=== PATIENT | male | born 1955 | race Caucasian/White ===

== ENCOUNTER 2021-03-23 14:02 | Emergency (ER) | payer BC, SELFPAY ==
--- NOTE | ~2021-03-23 | XR_ITS ---
EXAMINATION: XR CHEST CLINICAL INFORMATION: Chest discomfort COMPARISON: None TECHNIQUE: 2 views of the chest were obtained. FINDINGS: No significant abnormality is noted involving the heart, lungs, mediastinum, bony thorax or soft tissues. XR/XR chest 2V IMPRESSION: Unremarkable chest examination.
[2021-03-23 14:29] VITALS: BP 166/91; PULSE 80; RESP 18; TEMP 36.6; O2SAT 98; BMI 21.8
--- NOTE | 2021-03-23 14:34 | ECG_ITS ---
Test Reason : chest tightness Blood Pressure : / mmHG Vent. Rate : 067 BPM Atrial Rate : 067 BPM P-R Int : 218 ms QRS Dur : 092 ms QT Int : 348 ms P-R-T Axes : 070 057 067 degrees QTc Int : 367 ms Sinus rhythm with 1st degree A-V block with Premature atrial complexes Otherwise normal ECG When compared with ECG of 26-MAR-2018 14:03, Premature atrial complexes are now Present Referred By: Generic ED Physician Electronically Signed By:Héctor Carter
[2021-03-23 14:55] LABS: MANUAL DIFF FLAG NO
[2021-03-23 14:56] LABS: Basophils Absolute Auto 0.1 X10*3/uL (0.0-0.2); Basophils Percent Auto 0.5 % (0-2); Eosinophils Absolute Auto 0.1 X10*3/uL (0.0-0.4); Eosinophils Percent Auto 0.5 % (0-4); Hematocrit 45.9 % (42.0-52.0); Imm Gran Abs Auto 0.08 X10*3/uL (0.00-0.03); Imm Gran Pct Auto 0.7 % (0.0-0.4); Lymphocytes Absolute Auto 1.3 X10*3/uL (1.2-4.9); Lymphocytes Percent Auto 12.2 % (20-40); Mean Corpuscular HGB Conc 34.9 g/dl (31.0-36.0); Mean Platelet Volume 9.8 fL (9.4-12.4); Monocytes Absolute Auto 0.7 X10*3/uL (0.1-1.2); Neutrophils Absolute Auto 8.8 x10*3/uL (2.0-8.3); Neutrophils Percent Auto 80.1 % (45-73); Platelet Count 234 X10*3/uL (160-400); Red Blood Count 5.16 X10*6/uL (4.60-5.80); Red Cell Distribution Width 11.8 % (11.0-16.0)
[2021-03-23 15:12] LABS: COVID-19 Test Negative (Negative); IDNOW Serial# 9DD0AD1C
[2021-03-23 15:15] LABS: Troponin-I High Sensitivity 3.6 ng/L (<3.5-35.0)
[2021-03-23 15:21] LABS: Anion Gap 13 (12-20); Blood Urea Nitrogen 22 mg/dL (9-16); Calcium 10.6 mg/dL (8.4-10.2); Carbon Dioxide 24 mmol/L (22-29); Chloride 105 mmol/L (96-108); Creatinine Clr Calc Pharmacy 95.4; Estimated Glomerular Filt Rate > 60; Glucose Random 110 mg/dL (60-115); Potassium 4.6 mmol/L (3.3-5.1); Sodium 137 mmol/L (135-145)
--- NOTE | 2021-03-23 16:00 | ED.GENADULT ---
HPI - General Adult General Chief complaint: General Medical Stated complaint: Chest tightness/l arm tingling Time Seen by Provider: 03/23/21 16:00 Source: patient Mode of arrival: ambulatory Limitations: no limitations History of Present Illness HPI narrative: 66-year-old male past medical history significant for hypercholesterolemia, hypertension presents to the emergency department with complaints of fatigue, anxiety, chest pain and left arm tingling. Patient tells me that right now he feels a lot better he tells me that his chest discomfort is intermittent, he has a hard time describing what the chest discomfort feels like. He tells me that likely he has been feeling anxious but he is not sure what exactly is causing it. He tells me that 3 days ago he stopped watching news because all of this is very overwhelming to him. He tells me that this chest pain discomfort has been going on for about a week, it comes and goes in at times of stress it gets worse. He tells me yesterday came to the hospital, got nervous sat in the parking lot for a while and decided not to come in however he decided to come today. Since this started he has been walking 2 miles a day without pain. He denies shortness of breath, fevers, chills, nausea, vomiting, abdominal pain, headache, weakness, dizziness. He has no cardiac history Onset (ago): week(s) (1) Location: chest Radiation: non-radiation Severity: mild Pain Consistency: intermittent Exacerbating factors: other (stress) Associated symptoms: chest pain Treatments prior to arrival: none Related Data Previous Rx's Medication Instructions Recorded lorazepam 0.5 mg tablet (Ativan) 0.5 mg PO ONCE PRN #10 tab 03/23/21 Allergies Allergy/AdvReac Type Severity Reaction Status Date / Time No Known Allergies Allergy Unverified 11/19/19 17:25 [No Known Allergies*] Review of Systems Review of Systems: Constitutional : No Weight loss, No Fever, No Chills, No Fatigue, No Malaise ENT/Mouth : No sore throat, No Rhinorrhea Eyes: No Eye Pain, No Swelling, No Redness Cardiovascular : + Chest Pain, No SOB, No Dyspnea on Exertion, No Orthopnea, No Edema, No Palpitations Respiratory : No Cough, No Sputum, No Wheezing Gastrointestinal : No Nausea, No Vomiting, No Diarrhea, No Constipation, No abdominal Pain, No Hematochezia, No Melena Genitourinary : No Dysuria, No Urinary Frequency, No Hematuria, Musculoskeletal : No joint pain, No Myalgias, No Joint Swelling Skin : No Skin Lesions, No rash Neuro : No Weakness, No Numbness, No Dizziness, No Headache, +paresthesias to l. arm Psych : + Anxiety/Panic, No Depression, All other systems reviewed and are negative Yes all other systems are reviewed and are negative [facility] Past Medical History Attestation statement: The following information was validated with the patient. Source: old records reviewed and nursing notes reviewed Medical History (Updated 03/23/21 @ 16:35 by SILVERIO Davalos) High cholesterol HTN (hypertension) Social History Social History Advance Directives: No Advance Directives Information Provided: Yes Physical Exam Vital Signs: Vital Signs: Last Vital Signs Temp 98.4 F 03/23/21 16:04 Pulse 82 03/23/21 16:04 Resp 18 03/23/21 16:04 BP 133/79 03/23/21 16:04 Pulse Ox 98 03/23/21 16:04 BMI result Body Mass Index 21.8 VSS Appearance: Alert.? Oriented X3.? No acute distress.? Head: Normocephalic, atraumatic, no step-offs or deformities Eyes: Pupils equal, round and reactive to light.? ENT: Pharynx normal.? Neck: Normal inspection.? Neck supple.? CVS: Normal heart rate and rhythm.? Pulses normal.? Respiratory: No respiratory distress.? Breath sounds normal.? Abdomen: Soft and nontender.? Skin: Skin warm and dry.? Normal skin color.? Normal skin turgor.? Extremities: No lower extremity edema.? No calf ttp, negative sugar b/l. 5/5 strength to bilateral upper and lower extremities Back: No midline tenderness, no C-spine tenderness, full range of motion, no CVA tenderness bilaterally Neuro: Oriented X 3.? No motor deficit.? No sensory deficit. Course Reevaluation(s) Reevaluation #1: Patient is noted to have a slight leukocytosis, troponin 3.6, negative. No acute electrolyte abnormalities, no anemia. COVID negative. I will give patient 0.5 mg of Ativan now for anxiety. This is unlikely ACS. Time: 16:27 Reevaluation #2: Patient refusing ativan. He tells me that his chest pain has resolved. He denies shortness of breath, calf pain, recent travel or immobilization, unlikely PE. Troponin negative EKG nonischemic very low suspicion for ACS. This is likely chest pain secondary to anxiety. I have sent Ativan to his pharmacy. I have advised him to return to the emergency department with new or worsening symptoms such as chest pain, shortness of breath, headache, dizziness, vision changes, weakness. Comfortable discharge home with PCP follow-up. Time: 16:46 Medical Decision Making MDM Narrative Medical decision making narrative: 1608 66 yo m pmhx hypercholesterolemia, HTN presents to ED w/ complaints of fatigue, intermittent chest discomfort, and anxiety X1 week. He tells me that at this time he is not having any chest discomfort. He tells me it happens intermittently. He has recently stopped watching the news, because everything going on in the world right now is stressing him out. Physical examination benign. Vital signs stable. Plan at this time is to do a COVID, chest x-ray, basic labs, troponin. Medical Records Medical records reviewed: Yes I reviewed the patient's medical records. Lab Data Lab results reviewed: Yes I reviewed the patient's lab results. Result diagrams: 03/23/21 14:46 03/23/21 14:46 Labs: Lab Results 03/23/21 03/23/21 03/23/21 Range/Units 14:39 14:46 14:46 WBC 11.0 H (4.8-10.8) X10*3/uL RBC 5.16 (4.60-5.80) X10*6/uL Hgb 16.0 (14.0-18.0) g/dl Hct 45.9 (42.0-52.0) % MCV 89.0 (80.0-98.0) fL MCH 31.0 (27.0-33.0) pg MCHC 34.9 (31.0-36.0) g/dl RDW 11.8 (11.0-16.0) % Plt Count 234 (160-400) X10*3/uL MPV 9.8 (9.4-12.4) fL Immature Gran % (Auto) 0.7 H (0.0-0.4) % Neut % (Auto) 80.1 H (45-73) % Lymph % (Auto) 12.2 L (20-40) % [place] % (Auto) 6.0 (2-11) % Eos % (Auto) 0.5 (0-4) % Baso % (Auto) 0.5 (0-2) % Lymph # (Auto) 1.3 (1.2-4.9) X10*3/uL [place] # (Auto) 0.7 (0.1-1.2) X10*3/uL Eos # (Auto) 0.1 (0.0-0.4) X10*3/uL Baso # (Auto) 0.1 (0.0-0.2) X10*3/uL Abs Immat Gran (auto) 0.08 H (0.00-0.03) X10*3/uL Absolute Neuts (auto) 8.8 H (2.0-8.3) x10*3/uL Absolute Nucleated RBC 0.000 (0.0-0.012) X10*3/uL Nucleated RBC % (auto) 0.0 (0.0-0.2) /100WBC Sodium 137 (135-145) mmol/L Potassium 4.6 (3.3-5.1) mmol/L Chloride 105 (96-108) mmol/L Carbon Dioxide 24 (22-29) mmol/L Anion Gap 13 (12-20) BUN 22 H (9-16) mg/dL Creatinine 0.83 (0.5-1.4) mg/dL Estim Creat Clear Calc 95.4 Estimated GFR > 60 Random Glucose 110 (60-115) mg/dL Calcium 10.6 H (8.4-10.2) mg/dL Troponin I High Sens (<3.5-35.0) ng/L COVID-19 (DASHA) Negative (Negative) COVID-19 Clin Com See Note 03/23/21 Range/Units 14:46 WBC (4.8-10.8) X10*3/uL RBC (4.60-5.80) X10*6/uL Hgb (14.0-18.0) g/dl Hct (42.0-52.0) % MCV (80.0-98.0) fL MCH (27.0-33.0) pg MCHC (31.0-36.0) g/dl RDW (11.0-16.0) % Plt Count (160-400) X10*3/uL MPV (9.4-12.4) fL Immature Gran % (Auto) (0.0-0.4) % Neut % (Auto) (45-73) % Lymph % (Auto) (20-40) % [place] % (Auto) (2-11) % Eos % (Auto) (0-4) % Baso % (Auto) (0-2) % Lymph # (Auto) (1.2-4.9) X10*3/uL [place] # (Auto) (0.1-1.2) X10*3/uL Eos # (Auto) (0.0-0.4) X10*3/uL Baso # (Auto) (0.0-0.2) X10*3/uL Abs Immat Gran (auto) (0.00-0.03) X10*3/uL Absolute Neuts (auto) (2.0-8.3) x10*3/uL Absolute Nucleated RBC (0.0-0.012) X10*3/uL Nucleated RBC % (auto) (0.0-0.2) /100WBC Sodium (135-145) mmol/L Potassium (3.3-5.1) mmol/L Chloride (96-108) mmol/L Carbon Dioxide (22-29) mmol/L Anion Gap (12-20) BUN (9-16) mg/dL Creatinine (0.5-1.4) mg/dL Estim Creat Clear Calc Estimated GFR Random Glucose (60-115) mg/dL Calcium (8.4-10.2) mg/dL Troponin I High Sens 3.6 (<3.5-35.0) ng/L COVID-19 (DASHA) (Negative) COVID-19 Clin Com Imaging Data Chest x-ray: Attestation: I personally reviewed and interpreted this imaging study as follows: Radiologist's impression: FINDINGS: No significant abnormality is noted involving the heart, lungs, mediastinum, bony thorax or soft tissues. XR/XR chest 2V IMPRESSION: Unremarkable chest examination. ECG Data Attestation: I personally reviewed and interpreted this ECG as follows: Prior ECG tracings: not available for review Interpretation: Ventricular rate of 67, [place] normal, QRS normal, QT/QTC normal. EKG shows sinus rhythm with first-degree AV block. No ST elevations or inversions that are concerning for ischemia. No previous EKGs to compare with Critical Care Time Critical Care Time Critical Care Time: No Discharge Plan Discharge Clinical Impression: Chest pain not due to acute coronary syndrome, Anxiety Patient Disposition: Home, Self-Care Instructions: Chest Pain (ED), Anxiety (ED), Panic Attack (ED) Additional Instructions: Take your medications as prescribed. If you were prescribed antibiotics today, it is important that you take your medication to their entirety, do not skip any doses, do not finish them early. Follow-up with your primary care provider this week. Such as chest pain, shortness of breath, nausea, vomiting, headache, weakness. Return to the emergency department with new or worsening symptoms. In case of emergency call 911 Prescriptions: New lorazepam [Ativan] 0.5 mg tablet 0.5 mg PO ONCE PRN (Reason: anxiety) Qty: 10 RF: 0 Referrals: Pooja Travis MD [Primary Care Provider] - 2 days Stand Alone Forms: Work/School Release Interventions: ED Discharge Assessment Last Done: 03/23/21 17:01 Discharge Date/Time: 03/23/21 17:02
[2021-03-23 16:04] VITALS: BP 133/79; PULSE 82; RESP 18; TEMP 36.9; O2SAT 98
== END 2021-03-23 17:02 | disposition home or self-care (01) ==
PROVIDERS: Emergency Provider Emergency Medicine Emergency Medical Services; PCP Family Medicine
DX: R07.89 Other chest pain (principal); F41.9 Anxiety disorder, unspecified; Z20.822 Contact with and (suspected) exposure to COVID-19; I10 Essential (primary) hypertension; E78.5 Hyperlipidemia, unspecified
CPT/HCPCS: 36415; 71046; 80048; 84484; 85025; 87635; 93005; 99284

== ENCOUNTER 2021-04-01 02:05 | Emergency (ER) | payer BC, SELFPAY ==
--- NOTE | ~2021-04-01 | CT_ITS ---
EXAMINATION: CT CHEST WITHOUT CONTRAST CLINICAL INFORMATION: Chest tightness COMPARISON: Chest radiograph from 03/23/2021 TECHNIQUE: Multidetector volumetric CT imaging of the chest was done. Axial MIP volume rendering provided. Sagittal and coronal reformatted images were obtained. This CT examination was performed using dose optimization techniques as appropriate, variously including the following: *Automated exposure control *Adjustment of mA and/or kV according to patient size (this includes techniques or standardized protocols for targeted exams where dose is matched to indication/reason for exam; i.e. extremities or head) *Use of iterative reconstruction technique DLP: 289 mGy-cm FINDINGS: LUNGS: The lungs are clear with no evidence of inflammation or nodules. The central airways are patent. MEDIASTINUM: Normal heart size. No pericardial effusion. No mediastinal lymphadenopathy. The visualized portion of the thyroid gland is unremarkable. PLEURA: There is no pleural effusion. No pleural mass or thickening. No pneumothorax. AXILLA: No lymphadenopathy. UPPER ABDOMEN: Multiple hypoattenuating lesions are seen within the liver, most of which are too small to characterize. The largest of these measure simple fluid attenuation, suggestive of simple cysts. There is partial visualization of a simple right renal cyst. No follow-up imaging recommended. OSSEOUS STRUCTURES: No acute or suspicious osseous abnormality. Mild degenerative changes of the spine. CT/CT chest wo con IMPRESSION: No acute findings within the chest. The lungs are clear. Fleischner guidelines were followed.
[2021-04-01 02:09] VITALS: BP 140/78; PULSE 60; RESP 20; TEMP 36.3; O2SAT 100; BMI 21.8
--- NOTE | 2021-04-01 03:22 | ED_ITS ---
HPI - General Adult General Chief complaint: General Medical Stated complaint: high BP, increased heart rate Time Seen by Provider: 04/01/21 02:31 Source: patient and old records reviewed Mode of arrival: ambulatory Limitations: no limitations History of Present Illness MD complaint: palpitations, elevated blood pressures Onset (ago): day(s) (on and off since the ) Location: chest Radiation: non-radiation Severity: moderate Quality: dull Relieving factors: none Exacerbating factors: none Associated symptoms: other (BP 140 to 170s compliant with his amlodipine just seen on 03/23 negative workup in ED then was able to complete 2 mile walk saturday and felt fine but notes his HR goes up and BP goes up at night and it keeps him up) Treatments prior to arrival: none Related Data Previous Rx's Medication Instructions Recorded lorazepam 0.5 mg tablet (Ativan) 0.5 mg PO ONCE PRN #10 tab 03/23/21 lisinopril 2.5 mg tablet 2.5 mg PO DAILY #30 tab 04/01/21 Allergies Allergy/AdvReac Type Severity Reaction Status Date / Time No Known Allergies Allergy Verified 04/01/21 02:18 [No Known Allergies*] Review of Systems Verdana 4l Review of Systems: Verdana 4d Verdana 4d Constitutional : No Weight loss, No Fever, No Chills ENT/Mouth : No sore throat, No Rhinorrhea Eyes: No Eye Pain, No Swelling Cardiovascular : no Chest Pain, no SOB, no Dyspnea on Exertion, No Orthopnea, No Edema, pos Palpitations RespiratoryRespiratory : No Cough, No Sputum Gastrointestinal :no Nausea, No Vomiting, No Diarrhea, No abdominal Pain, No Hematochezia, No Melena Genitourinary : No Dysuria, No Urinary Frequency Musculoskeletal : No joint pain, No Myalgias, No Joint Swelling Skin : No Skin Lesions, No rash Neuro : No Weakness, No Numbness, No Dizziness, No Headache Psych : No Anxiety/Panic, No Depression Heme/Lymph: No Bruising, No Lymphadenopathy Endocrine : No Polyuria, No Polydipsia All other systems reviewed and are negative [facility] Past Medical History Attestation statement: The following information was validated with the patient. Medical History High cholesterol HTN (hypertension) Social History Social History (Updated 04/01/21 @ 03:42 by Karen Henley DO) Patient Tobacco Use Status: Never used Tobacco Advance Directives: No Advance Directives Information Provided: Yes Physical Exam Verdana 4l Vital Signs: Verdana 4d Verdana 4d Vital Signs: Verdana 4d Verdana 4Bd Last Vital Signs Verdana 4d Talent Buyer New 4d Talent Buyer New 4d Temp 97.3 F 04/01/21 02:09 Talent Buyer New 4d Pulse 66 04/01/21 03:53 Talent Buyer New 4d Resp 15 04/01/21 03:53 BP 150/76 H 04/01/21 03:53 Pulse Ox 97 04/01/21 03:53 BMI result Body Mass Index 21.8 Appearance: Alert. Oriented X3. No acute distress. Anxious appearing Eyes: Pupils equal, round and reactive to light. ENT: Pharynx normal. Neck: Normal inspection. Neck supple. CVS: Normal heart rate and rhythm. Pulses normal. Respiratory: No respiratory distress. Breath sounds normal. Abdomen: Soft and nontender. Skin: Skin warm and dry. Normal skin color. Normal skin turgor. Extremities: No lower extremity edema. No calf ttp Neuro: Oriented X 3. No motor deficit. No sensory deficit. Course Course Course Narrative: negative workup stable for DC will start on low dose lisinopril 2.5mg given BP and will instruct him to follow up with PCP Medical Decision Making MDM Narrative Medical decision making narrative: 66 yo male with hx of HTN, HLD here with c/o palpitations at night waking him from sleep as well as BP increasing 140 to 170s despite compliance with his amlodipine 10mg he denies any OTC medications and doesn't feel anxious. He notes he was just worked up for chest pain in our ED and was able to walk 2 miles after his DC and felt fine. Thinks his BP is consistently high and needs another BP medication. At this time will obtain troponin x 1, EKG, TSH, CT scan for mass. Dispo per results and findings. Lab Data Result diagrams: 04/01/21 03:53 04/01/21 03:53 Labs: Lab Results 04/01/21 04/01/21 04/01/21 Range/Units 03:53 03:53 03:53 WBC 9.4 (4.8-10.8) X10*3/uL RBC 4.98 (4.60-5.80) X10*6/uL Hgb 15.2 (14.0-18.0) g/dl Hct 44.4 (42.0-52.0) % MCV 89.2 (80.0-98.0) fL MCH 30.5 (27.0-33.0) pg MCHC 34.2 (31.0-36.0) g/dl RDW 11.9 (11.0-16.0) % Plt Count 230 (160-400) X10*3/uL MPV 9.6 (9.4-12.4) fL Immature Gran % (Auto) 0.6 H (0.0-0.4) % Neut % (Auto) 69.0 (45-73) % Lymph % (Auto) 19.6 L (20-40) % [place] % (Auto) 9.1 (2-11) % Eos % (Auto) 1.2 (0-4) % Baso % (Auto) 0.5 (0-2) % Lymph # (Auto) 1.8 (1.2-4.9) X10*3/uL [place] # (Auto) 0.9 (0.1-1.2) X10*3/uL Eos # (Auto) 0.1 (0.0-0.4) X10*3/uL Baso # (Auto) 0.1 (0.0-0.2) X10*3/uL Abs Immat Gran (auto) 0.06 H (0.00-0.03) X10*3/uL Absolute Neuts (auto) 6.5 (2.0-8.3) x10*3/uL Absolute Nucleated RBC 0.000 (0.0-0.012) X10*3/uL Nucleated RBC % (auto) 0.0 (0.0-0.2) /100WBC Sodium 138 (135-145) mmol/L Potassium 4.8 (3.3-5.1) mmol/L Chloride 104 (96-108) mmol/L Carbon Dioxide 24 (22-29) mmol/L Anion Gap 15 (12-20) BUN 17 H (9-16) mg/dL Creatinine 0.84 (0.5-1.4) mg/dL Estim Creat Clear Calc 94.3 Estimated GFR > 60 Random Glucose 104 (60-115) mg/dL Calcium 10.4 H (8.4-10.2) mg/dL Magnesium 2.4 (1.6-2.6) mg/dL Troponin I High Sens < 3.5 (<3.5-35.0) ng/L TSH 1.72 (0.32-4.0) uIU/mL ECG Data Attestation: I personally reviewed and interpreted this ECG as follows: Interpretation: Rate: 61 Rhythm: NSR with 1st degree AVB [place]: normal Normal P waves. Normal GREGORY. Normal QRS complex. ST T wave : normal no JONATHAN qTC: normal prior studies: no acute ischemia The study has been interpreted contemporaneously by me. . Discharge Plan Discharge Clinical Impression: HTN (hypertension), Heart palpitations Patient Disposition: Home, Self-Care Instructions: Heart Palpitations (ED), Hypertension (ED) Additional Instructions: return to ED for any worsening symptoms or concerns EKG, chest CT scan, heart markers and thyroid are all normal Prescriptions: New lisinopril 2.5 mg tablet 2.5 mg PO DAILY Qty: 30 0RF No Action lorazepam [Ativan] 0.5 mg tablet 0.5 mg PO ONCE PRN (Reason: anxiety) Qty: 10 0RF Rx Instructions: Patient can partially fill prescription upon request Referrals: Physician,Unknown J [Primary Care Provider] - 3 days (recheck primary care - follow up kidney function and potassium in 5 days)
--- NOTE | 2021-04-01 03:39 | ECG_ITS ---
Test Reason : HYPERTENSION Blood Pressure : / mmHG Vent. Rate : 061 BPM Atrial Rate : 061 BPM P-R Int : 226 ms QRS Dur : 096 ms QT Int : 396 ms P-R-T Axes : 063 039 056 degrees QTc Int : 398 ms Sinus rhythm with sinus arrhythmia with 1st degree A-V block Otherwise normal ECG When compared with ECG of 23-MAR-2021 14:32, Premature atrial complexes are no longer Present Referred By: Karen Henley Electronically Signed By:EDMUNDO CHARLES MD
[2021-04-01 03:53] VITALS: BP 150/76; PULSE 66; RESP 15; O2SAT 97
[2021-04-01 03:58] LABS: MANUAL DIFF FLAG NO
[2021-04-01 04:00] LABS: Basophils Absolute Auto 0.1 X10*3/uL (0.0-0.2); Basophils Percent Auto 0.5 % (0-2); Eosinophils Absolute Auto 0.1 X10*3/uL (0.0-0.4); Eosinophils Percent Auto 1.2 % (0-4); Hematocrit 44.4 % (42.0-52.0); Hemoglobin 15.2 g/dl (14.0-18.0); Imm Gran Abs Auto 0.06 X10*3/uL (0.00-0.03); Imm Gran Pct Auto 0.6 % (0.0-0.4); Lymphocytes Absolute Auto 1.8 X10*3/uL (1.2-4.9); Lymphocytes Percent Auto 19.6 % (20-40); Mean Corpuscular HGB Conc 34.2 g/dl (31.0-36.0); Mean Corpuscular Hemoglobin 30.5 pg (27.0-33.0); Mean Corpuscular Volume 89.2 fL (80.0-98.0); Mean Platelet Volume 9.6 fL (9.4-12.4); Monocytes Absolute Auto 0.9 X10*3/uL (0.1-1.2); Monocytes Percent Auto 9.1 % (2-11); Neutrophils Absolute Auto 6.5 x10*3/uL (2.0-8.3); Platelet Count 230 X10*3/uL (160-400); Red Blood Count 4.98 X10*6/uL (4.60-5.80); Red Cell Distribution Width 11.9 % (11.0-16.0); White Blood Count 9.4 X10*3/uL (4.8-10.8)
[2021-04-01 04:14] LABS: Anion Gap 15 (12-20); Blood Urea Nitrogen 17 mg/dL (9-16); Calcium 10.4 mg/dL (8.4-10.2); Carbon Dioxide 24 mmol/L (22-29); Chloride 104 mmol/L (96-108); Creatinine Clr Calc Pharmacy 94.3; Estimated Glomerular Filt Rate > 60; Glucose Random 104 mg/dL (60-115); Magnesium 2.4 mg/dL (1.6-2.6); Potassium 4.8 mmol/L (3.3-5.1); Sodium 138 mmol/L (135-145)
[2021-04-01 04:18] LABS: Troponin-I High Sensitivity < 3.5 ng/L (<3.5-35.0)
[2021-04-01 04:35] LABS: TSH reflex Free T4 1.72 uIU/mL (0.32-4.0)
[2021-04-01 05:04] VITALS: BP 149/80; PULSE 70; RESP 13; O2SAT 97
== END 2021-04-01 05:19 | disposition home or self-care (01) ==
PROVIDERS: Emergency Provider Emergency Medicine
DX: I10 Essential (primary) hypertension (principal); R00.2 Palpitations; E78.5 Hyperlipidemia, unspecified; Z79.899 Other long term (current) drug therapy
CPT/HCPCS: 36415; 71250; 80048; 83735; 84443; 84484; 85025; 93005; 99284

== ENCOUNTER 2023-04-09 05:10 | Emergency (ER) | payer MEDICARE, OTHER, SELFPAY ==
--- NOTE | 2023-04-09 | ECG_ITS ---
Test Reason : CHEST DISCOMFORT Blood Pressure : / mmHG Vent. Rate : 067 BPM Atrial Rate : 067 BPM P-R Int : 232 ms QRS Dur : 096 ms QT Int : 384 ms P-R-T Axes : 076 022 039 degrees QTc Int : 405 ms Sinus rhythm with sinus arrhythmia with 1st degree A-V block Otherwise normal ECG When compared with ECG of 01-APR-2021 03:50, No significant change was found Referred By: Generic ED Physician Electronically Signed By:JAVIER RODRIGUEZ
--- NOTE | 2023-04-09 | ECG_ITS ---
Test Reason : REPEAT/LT ARM PAIN Blood Pressure : / mmHG Vent. Rate : 062 BPM Atrial Rate : 062 BPM P-R Int : 222 ms QRS Dur : 096 ms QT Int : 388 ms P-R-T Axes : 050 028 045 degrees QTc Int : 393 ms Sinus rhythm with 1st degree A-V block Otherwise normal ECG When compared with ECG of 09-APR-2023 05:17, No significant change was found Referred By: Generic ED Physician Electronically Signed By:JAVIER RODRIGUEZ
--- NOTE | ~2023-04-09 | CT_ITS ---
EXAMINATION: CT HEAD WITHOUT CONTRAST CLINICAL INFORMATION: Left upper extremity pain COMPARISON: None available. TECHNIQUE: Contiguous axial imaging was performed from the skull base to vertex without intravenous administration of contrast. This CT examination was performed using dose optimization techniques as appropriate, variously including the following: *Automated exposure control *Adjustment of mA and/or kV according to patient size (this includes techniques or standardized protocols for targeted exams where dose is matched to indication/reason for exam; i.e. extremities or head) *Use of iterative reconstruction technique DLP: 733 mGy-cm FINDINGS: There is no acute intra-axial, extra-axial bleed, masses or midline shift. There is no acute infarction evolution. There is no edema. The lateral ventricles are symmetrical in size and configuration without enlargement. Bone windows reveal no calvarial abnormality. There is no scalp soft tissue abnormality. There is mild mucoperiosteal thickening right frontal sinus. Rest the visualized paranasal sinuses are well-aerated and clear. The mastoid sinuses are clear. CT/CT head/brain wo IV con IMPRESSION: No acute intracranial process seen.
--- NOTE | ~2023-04-09 | US_ITS ---
EXAMINATION: US VENOUS WITH DOPPLER UPPER EXTREMITY, LEFT CLINICAL INFORMATION: Left arm pain COMPARISON: None available. TECHNIQUE: Ultrasound of the upper extremity is performed using compression sonography and color and pulse Doppler flow with assessment of augmentation of flow. There is also imaging and Doppler assessment of the jugular and subclavian veins. Spectral analysis with color-flow imaging is performed. FINDINGS: Respiratory variation and normal compression are noted throughout the upper extremity including the axillary, brachial, basilic, cephalic and radial and ulnar veins. There is normal flow in the internal jugular and subclavian veins. There is no visible deep or superficial thrombophlebitis. The right subclavian vein demonstrates normal flow. US/US venous duplex UE LT IMPRESSION: No DVT demonstrated in the left upper extremity.
[2023-04-09 05:30] LABS: Basophils Percent Auto 0.5 % (0-2); Eosinophils Absolute Auto 0.1 X10*3/uL (0.0-0.4); Eosinophils Percent Auto 1.6 % (0-4); Hematocrit 46.9 % (42.0-52.0); Hemoglobin 16.2 g/dl (14.0-18.0); Imm Gran Abs Auto 0.04 X10*3/uL (0.00-0.03); Imm Gran Pct Auto 0.5 % (0.0-0.4); Lymphocytes Percent Auto 24.5 % (20-40); MANUAL DIFF FLAG NO; Mean Corpuscular HGB Conc 34.5 g/dl (31.0-36.0); Mean Corpuscular Volume 86.9 fL (80.0-98.0); Mean Platelet Volume 9.4 fL (9.4-12.4); Monocytes Absolute Auto 0.5 X10*3/uL (0.1-1.2); Monocytes Percent Auto 6.1 % (2-11); Neutrophils Absolute Auto 5.5 x10*3/uL (2.0-8.3); Neutrophils Percent Auto 66.8 % (45-73); Platelet Count 202 X10*3/uL (160-400); Red Cell Distribution Width 12.2 % (11.0-16.0); White Blood Count 8.2 X10*3/uL (4.8-10.8)
[2023-04-09 05:44] LABS: Alanine Aminotransferase 29 U/L (0-40); Albumin Level 4.6 g/dL (3.5-5.0); Alkaline Phosphatase 78 U/L (39-117); Anion Gap 13 (12-20); Aspartate Amino Transferase 22 U/L (5-37); Bilirubin Direct 0.3 mg/dL (0.0-0.5); Bilirubin Total 0.7 mg/dL (0.0-1.0); Blood Urea Nitrogen 21 mg/dL (9-16); Carbon Dioxide 25 mmol/L (22-29); Chloride 105 mmol/L (96-108); Estimated Glomerular Filt Rate > 60; Glucose Random 115 mg/dL (60-115); Lipase 26 U/L (8-78); Potassium 3.8 mmol/L (3.3-5.1); Sodium 139 mmol/L (135-145); Total Protein 7.5 g/dL (6.5-8.0)
[2023-04-09 05:46] VITALS: BMI 24.0
[2023-04-09 05:51] VITALS: BP 151/73; PULSE 66; RESP 17; TEMP 36.6; O2SAT 98
--- NOTE | 2023-04-09 05:51 | MHC.EDTECH ---
Patient came in from triage,repeat EKG taken per order and signed by provider,patient placed in hospital attire, and placed on the monitoring analyst
[2023-04-09 05:52] LABS: Troponin-I High Sensitivity < 2.7 ng/L (<3.5-35.0)
[2023-04-09 06:31] VITALS: BP 133/75; PULSE 62; RESP 18; TEMP 36.6; O2SAT 98
--- NOTE | 2023-04-09 06:41 | MHC.EDTECH ---
Urine sample collected and sent to lab.
[2023-04-09 06:48] LABS: Appearance Urine Clear; Color Urine Yellow; Glucose Urine UA Negative (Negative); Leukocyte Esterase Urine Negative (Negative); Nitrite Urine Negative (Negative); Urine Blood Negative (Negative); Urine Ketones Trace mg/dL (Negative); Urine Protein Negative (Neg-Trace)
--- NOTE | 2023-04-09 07:34 | ED_ITS ---
HPI - General Adult General Chief complaint: Weakness Stated complaint: L Arm Sore/Not feeling good Time Seen by Provider: 04/09/23 07:16 Source: patient and family ( spouse) Mode of arrival: ambulatory Limitations: no limitations History of Present Illness HPI narrative: a 68-year-old male came in for evaluation of multiple symptoms that started 4- 5 weeks ago. Patient is sickness started after was diagnosed with COVID end of February, patient tested negative for COVID on March 08 still having some symptoms like loss of taste and did have left arm soreness that has been constant since March 08 felt like muscle soreness after exercising, patient been having episodes of dizziness and lightheadedness ever since that is intermittent and self resolved, symptoms was fluctuating for the past 5 weeks, patient stated that he walks every day 2-3 miles for exercising, do not drink, do not use any drugs. This morning patient felt 4 extremities weakness, and his teeth with chattering like his shivering but declined any slurred speech or focal weakness or numbness. No CP, no SOB, no abdominal pain, no nausea, no vomiting, normal appetite and p.o. intake. Patient stated that he is relatively healthy takes medication for high blood pressure, and he is prediabetic that is controlled by dieting and exercising. Related Data Previous Rx's Medication Instructions Recorded lorazepam 0.5 mg tablet (Ativan) 0.5 mg PO ONCE PRN anxiety #10 tabs 03/23/21 lisinopril 2.5 mg tablet 2.5 mg PO DAILY #30 tabs 04/01/21 Allergies Allergy/AdvReac Type Severity Reaction Status Date / Time No Known Allergies Allergy Verified 04/01/21 02:18 [No Known Allergies*] Review of Systems 2 Review of Systems: all other systems are reviewed and are negative Constitutional: Reports as per HPI and Reports no additional constitutional complaints Eyes: Reports as per HPI and Reports no additional eye complaints Reports system reviewed and no additional complaints, except as documented Cardiovascular: Reports as per HPI and Reports no additional cardiovascular complaints Respiratory: Reports as per HPI and Reports no additional respiratory complaints Gastrointestinal: Reports as per HPI and Reports no additional gastrointestinal complaints Genitourinary: Reports no additional female genitourinary complaints Musculoskeletal: Reports no additional musculoskeletal complaints Skin/Breast: Reports system reviewed and no additional complaints, except as docu Psychiatric: Reports no additional psychiatric complaints Endocrine: Reports no additional endocrine complaints Hematologic/Lymphatic: Reports no additional hematologic/lymphatic complaints Allergic/Immunologic: Reports no additional allergic/immunologic complaints Reports system reviewed and no additional complaints, except as documented and Reports Abnormal speech present [facility] Past Medical History Medical History High cholesterol HTN (hypertension) Social History Social History Patient Tobacco Use Status: Never used Tobacco Advance Directives: No Advance Directives Information Provided: Yes Physical Exam ED Vital Signs: Vital Signs - 24 hr 04/09/23 05:51 04/09/23 06:31 04/09/23 09:58 Temperature 97.9 F 97.8 F 97.9 F Pulse Rate 66 62 62 Respiratory Rate 17 18 16 Blood Pressure 151/73 H 133/75 118/75 Pulse Oximetry 98 98 97 Oxygen Delivery Method Room Air Room Air Room Air BMI result Body Mass Index 24.0 Vital signs have been reviewed and appear to be correct. Blood pressure elevated. Heart rate normal. Respiratory rate normal. Temperature normal. Oxygen saturation normal. Appearance: Alert. Oriented X3. No acute distress. Head: Normal external exam. Normocephalic. Atraumatic. No [place] signs noted. No raccoon eyes noted Eyes: PERRLA. EOMI. Conjunctiva and sclera normal. Eyelids normal. ENT: TM's Normal. Pharynx normal. Uvula midline. Moist mucous membranes. No trismus noted. No drooling noted. No muffled voice noted. Neck: Normal inspection. Neck supple. FROM. No adenopathy. Thyroid Normal. No meningeal signs. No neck mass noted. CVS: Normal heart rate and rhythm. Heart sound normal. No murmurs noted. Pulses normal throughout. Respiratory: No respiratory distress. Painless inspiration. Breath sounds normal. No wheezes/rales/rhonchi noted. Chest nontender. No accessory muscle usage noted or decreased air movement noted. Abdomen: Soft and nontender. Bowel sounds normal in all 4 quadrants. No distention noted. No organomegaly noted. No visible injury noted. Back: No CVA tenderness. Full range of motion noted. Skin: Skin warm and dry. Normal skin color. Normal skin turgor. No rashes/lesions/lacerations noted. Extremities: No lower extremity edema. Extremities exhibit normal range of motion. Extremities nontender. Neuro: Oriented X 3. Cranial nerve exam: II-XII are grossly intact No motor deficit. No sensory deficit. Reflexes normal. NIH Stroke Scale Time: 07:40 Level of Consciousness: Alert Level of Consciousness Questions: Answers both questions correctly Level of Consciousness Commands: Performs both tasks correctly Best Gaze: Normal Visual: No visual loss Facial Palsy: Normal Motor Arm (Right): No drift Motor Arm (Left): No drift Motor Leg (Right): No drift Motor Leg (Left): No drift Limb Ataxia: Absent Sensory: Normal Best Language: No aphasia Dysarthia: Normal Extinction and Inattention: No abnormality Score: 0 Course Reevaluation(s) Reevaluation #1: 68-year-old male came in for evaluation of history of a month of nonspecific weakness and pain in the left upper extremities but also complaining of generalized weakness symptoms started a month ago after was infected with COVID, patient has grossly intact neuro exam was unremarkable head CT, unremarkable labs except slight elevation of CPK, no DVT in the left upper extremities by ultrasound, no evidence of stroke on the head CT. Patient appear anxious during the interview. Patient's symptoms felt to be post COVID Symptoms. Time: 10:15 Medical Decision Making Differential Diagnosis Differential Diagnoses: The differential diagnosis associated with the presentation includes ( intracranial bleed, CVA, electrolyte abnormality, rhabdomyolysis, severe anemia,UTI, post COVID symptoms left upper extremity DVT) Admission/Observation Consideration of admission/observation: Escalation of care including admission/observation considered Lab Data MDM Lab Attestation statement: I reviewed the patient's lab results. 04/09/23 05:26 04/09/23 05:26 Labs: Lab Results 04/09/23 04/09/23 Range/Units 05:26 06:41 WBC 8.2 (4.8-10.8) X10*3/uL RBC 5.40 (4.60-5.80) X10*6/uL Hgb 16.2 (14.0-18.0) g/dl Hct 46.9 (42.0-52.0) % MCV 86.9 (80.0-98.0) fL MCH 30.0 (27.0-33.0) pg MCHC 34.5 (31.0-36.0) g/dl RDW 12.2 (11.0-16.0) % Plt Count 202 (160-400) X10*3/uL MPV 9.4 (9.4-12.4) fL Immature Gran % (Auto) 0.5 H (0.0-0.4) % Neut % (Auto) 66.8 (45-73) % Lymph % (Auto) 24.5 (20-40) % [place] % (Auto) 6.1 (2-11) % Eos % (Auto) 1.6 (0-4) % Baso % (Auto) 0.5 (0-2) % Lymph # (Auto) 2.0 (1.2-4.9) X10*3/uL [place] # (Auto) 0.5 (0.1-1.2) X10*3/uL Eos # (Auto) 0.1 (0.0-0.4) X10*3/uL Baso # (Auto) 0.0 (0.0-0.2) X10*3/uL Abs Immat Gran (auto) 0.04 H (0.00-0.03) X10*3/uL Absolute Neuts (auto) 5.5 (2.0-8.3) x10*3/uL Absolute Nucleated RBC 0.000 (0.0-0.012) X10*3/uL Nucleated RBC % (auto) 0.0 (0.0-0.2) /100WBC Sodium 139 (135-145) mmol/L Potassium 3.8 (3.3-5.1) mmol/L Chloride 105 (96-108) mmol/L Carbon Dioxide 25 (22-29) mmol/L Anion Gap 13 (12-20) BUN 21 H (9-16) mg/dL Creatinine 0.85 (0.5-1.4) mg/dL Estim Creat Clear Calc TNP Estimated GFR > 60 Random Glucose 115 (60-115) mg/dL Calcium 10.0 (8.4-10.2) mg/dL Total Bilirubin 0.7 (0.0-1.0) mg/dL Direct Bilirubin 0.3 (0.0-0.5) mg/dL AST 22 (5-37) U/L ALT 29 (0-40) U/L Alkaline Phosphatase 78 (39-117) U/L Total Creatine Kinase 241 H (38-174) U/L Troponin I High Sens < 2.7 (<3.5-35.0) ng/L Total Protein 7.5 (6.5-8.0) g/dL Albumin 4.6 (3.5-5.0) g/dL Lipase 26 (8-78) U/L Urine Color Yellow Urine Appearance Clear Urine pH 6.0 (5.0-9.0) Ur Specific [place] 1.020 (1.005-1.025) Urine Protein Negative (Neg-Trace) mg/dL Urine Glucose (UA) Negative (Negative) mg/dL Urine Ketones Trace (Negative) mg/dL Urine Blood Negative (Negative) Urine Nitrite Negative (Negative) Ur Leukocyte Esterase Negative (Negative) Independent Interpretation I performed an independent interpretation of an: CT Scan ( head: No acute intracranial pathology.) Radiology Impression Discussion of test interpretation with radiology: I have reviewed the radiologist's reading. Chronic Conditions Patient?s care impacted by: Hypertension and Other ( Anxiety) Discharge Plan Discharge Clinical Impression: Post-COVID chronic neurologic symptoms, Anxiety Patient Disposition: Home, Self-Care Instructions: Anxiety (ED), Musculoskeletal Pain (ED) Prescriptions: No Action lorazepam [Ativan] 0.5 mg tablet 0.5 mg PO ONCE PRN (Reason: anxiety) Qty: 10 0RF Rx Instructions: Patient can partially fill prescription upon request lisinopril 2.5 mg tablet 2.5 mg PO DAILY Qty: 30 0RF Referrals: Cat Potts MD [Primary Care Provider] -
[2023-04-09 09:58] VITALS: BP 118/75; PULSE 62; RESP 16; TEMP 36.6; O2SAT 97
--- NOTE | 2023-04-09 10:00 | PC.NURSE ---
patient a&ox3, lungs clear, pt states he previously had lt arm weakness/ pt has equal grasp neuros currently intact, pt had ct scan, no c/o pain or discomfort at this time, call ivory within reach, will continue to monitor.
== END 2023-04-09 11:06 | disposition home or self-care (01) ==
PROVIDERS: Emergency Provider Emergency Medicine; PCP Internal Medicine
DX: R53.1 Weakness (principal); R29.818 Other symptoms and signs involving the nervous system; U09.9 Post COVID-19 condition, unspecified; F41.9 Anxiety disorder, unspecified; M79.602 Pain in left arm; R42 Dizziness and giddiness; I10 Essential (primary) hypertension
CPT/HCPCS: 36415; 70450; 80048; 80076; 81003; 82550; 83690; 84484; 85025; 93005; 93971; 99284; 99285

== ENCOUNTER → 2023-04-09 05:17 | Outpatient (BNV) | payer MEDICARE, OTHER, SELFPAY | PROVIDERS: Emergency Provider Emergency Medicine; PCP Internal Medicine; Visit Provider Internal Medicine | DX: I44.0 Atrioventricular block, first degree (principal) | CPT/HCPCS: 93010 ==